=== PATIENT | female | born 1960 | race Caucasian/White ===

== ENCOUNTER → 2023-10-12 13:00 | Outpatient (BNV) | payer BC, SELFPAY | PROVIDERS: Visit Provider Psychiatry & Neurology Psychiatry | DX: F32.A Depression, unspecified (principal); F43.0 Acute stress reaction; F43.10 Post-traumatic stress disorder, unspecified | CPT/HCPCS: 90792; 90832; 99213 ==

== ENCOUNTER 2023-10-20 12:45 | Outpatient (RCR) | payer BC, SELFPAY ==
[2023-10-07 11:47] VITALS: BP 114/69; PULSE 87; TEMP 37.2
[2023-10-07 11:51] VITALS: BMI 30.4
--- NOTE | 2023-10-07 15:37 | PC.ADMIT ---
Patient is a 63 year old female who was referred to [facility] by her therapist d/t increased depression and anxiety sxs. She reports many stresses including work stress and stress at home as her 32 year old son is living with her son who she describes is a recovering addict however she is unsure if he is still using. She feels she does not have a safe place to live and feels she is being blamed for everything. She reports feeling overwhelmed. Is taking a leave of absence from work to work on her mental health. Her supports include family and friends. Swati is alert and oriented x4. She is calm and cooperative. Presented with depressed mood and affect. Regarding SI patient stated, Not in the past week or so but have had thoughts to, walk in front of a truck on the highway . Thoughts about how many muscle relaxers she could take. Stated no intent to kill herself as she does not want to end up worse off than she is. I gave Swati a copy of her safety plan and reviewed this with her. Medications reconciled with patient and patient's pharmacy. Stated she does take her medications as prescribed however had some prescriber issues as some of her providers left. She reports she ran out of Wellbutrin, fluoxetine x one week which were filled on 10/05/23 and ran out of [place] Thyroid for a week and stated this should be taken care of today. She reports her sister and friend are supportive. She is taking a leave of absence from work to work on her mental health.
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
--- NOTE | 2023-10-13 18:42 | HO.PHP ---
The client's case was reviewed and opened in treatment team.
--- NOTE | 2023-10-14 20:08 | HO.PHPPROGNO ---
Subjective Subjective Date of Service: 10/14/23 Reason For Visit: PTSD Interim History: Patient seen for follow-up. No acute issues or complaints Doing alright . NO changes since we have continued off the Wellbutrin. SHe reports her mood is stable. She has not noticed any emerging problems with energy or focus. Sleep is okay, no change, still tends to wak up once a night, otherwise getting enough hours. Continues on the fluoxetine 10 mg which helps with hotflashes. Attending groups. Discusses challenging work environment. Not feeling supported, weighing out options for work. Monitoring alcohol consumption. Denies any hopelessness or SI. Medication Compliance: Yes Side effects from medications: No Attending Groups: Yes Review of Systems Acute medical concerns: No Mental Status Exam Mental Status Exam Narrative: Alert, oriented, in no acute distress. Casually dressed. Hygiene good, grooming good. Normal gait, no tics/tremors/dyskinesia, no psychomotor agitation or neurovegetative retardation. Calm, cooperative, forthcoming. Well-related. Maintains appropriate eye contact. Mood is depressed. Affect subdued, low range of affect, low reactivity, mood congruent. Speech is normal, regular rate, rhythm, prosody. No latency or pressured speech. Thought process is goal-directed. Thought content relevant to stressors and presentation, no paranoid or delusional content elicited, some future-orientation. Denies SI or HI on inquiry. No evidence of psychosis. Cognition grossly intact. Sensorium clear. Insight is good. Judgment intact. Diagnostics Vital Signs (24Hr): BMI result Body Mass Index 30.4 Assessment & Plan Assessment & Plan (1) Depressive disorder: Status: Acute Code(s): F32.A - Depression, unspecified (2) Acute stress reaction causing mixed disturbance of emotion and conduct: Status: Acute Code(s): F43.0 - Acute stress reaction (3) Complex posttraumatic stress disorder: Status: Acute Code(s): F43.10 - Post-traumatic stress disorder, unspecified Plan continue off the Wellbutrin (will discontinue) contiue fluoxetine 10 mg qAM continue other medications continue to monitor Patient educated on: diagnosis and medication risk/benefits Informed Consent: understands Reason for contiued partial hosp. stay Substantial Risk for: inability to function, rapid decompensation and med/psych decompensation Certification I certify that partial hospital treatment is medically necessary due to the symptoms and problems resulting from the patient's mental illness and the failure to treat the patient at the partial hospital level of care would likely result in the patient requiring inpatient psychiatric care which could not be prevented at a less intensive level of care. Total time managing care of this patient today _30___ minutes. Discharge Plan Discharge Attending provider: Anabel Tamayo Medications: Continued multivitamin Tablet 1 tab PO DAILY liothyronine 5 mcg tablet 10 mcg PO QAM fluoxetine 10 mg capsule 10 mg PO DAILY magnesium 250 mg Tablet 250 mg PO DAILY albuterol sulfate 90 mcg/actuation HFA aerosol inhaler 1 - 2 puff INHALATION Q4-6H PRN (Reason: sob) thyroid (pork) [[place] Thyroid] 30 mg tablet 30 mg PO DAILY Discontinued bupropion HCl 150 mg tablet extended release 24 hr 150 mg PO QAM Hold Instructions: Resume on 10/17/23. Stand Alone Forms: Patient Portal Discharge page Patient Education: Post Traumatic Stress Disorder (ED)
--- NOTE | 2023-10-19 15:14 | HO.PHP ---
[facility] staff followed up with Swati after group one to explore how she is feeling due to her appearing overwhelmed. Swati agreed that it was a little overwhelming and mentioned that she would love to be able to talk to her son around these situations and resolve the issues but she does not see that being a possibility without a highway engineer. [facility] staff member was receptive and encouraged her not to engage in conversation with her son if she is feeling unsafe or uncertain to how he would respond due to his mental state. [facility] staff member assessed if Swati would like resources for family therapist. Swati noted that she would appreciate that. [facility] staff member was receptive and encouraged her to go on [employer] to see if there is an individual she feels would be a good fit. [facility] staff member also encouraged her to further discuss with her therapist her thoughts around the situation with her son. Swati was in agreement. Swati was not expressing any current safety concerns at this time.
--- NOTE | 2023-10-20 18:15 | HO.PHPPROGNO ---
Subjective Subjective Date of Service: 10/20/23 Reason For Visit: PTSD Interim History: Patient seen for follow-up. She anticipates discharge at the end of the program today. She reports she is doing well. 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 She would like to use her time to get some things done, errands, projects other tasks that she has not had time to attend to, but also feels sense of duty or obligation to return to work and see her students. She continues off the WEllbutrin and feels no change. Mood continues to be stable. Mood today good euthymic. Denies any hopelessness or SI. She has been having more productive discussions with her adult son, and feels they are starting to make inroads. He still struggles with his mood up and down but is starting to take some accountability, at least he is being less hostile. She continues on baljit Prozac 10 mg (for menopausal symptoms relief). Denies any adverse effects. She will be following up with her PCP on the and her therapist on the . Denies any acute issues or concerns. Medication Compliance: Yes Side effects from medications: No Attending Groups: Yes Review of Systems Acute medical concerns: No Mental Status Exam Mental Status Exam Narrative: Alert, oriented, in no acute distress. Casually dressed. Calm, cooperative, forthcoming. Eye contact maintained. Mood euthymic, affect approrpriate. Normal speech. No evidence of thought disorder. Goal-directed. Future-oriented. No SI or HI on inquiry. No evidence of cheryle or psychosis. Cognition grossly intact. Sensorium clear. Insight and judgment intact. Diagnostics Vital Signs (24Hr): BMI result Body Mass Index 30.4 Assessment & Plan Assessment & Plan (1) Depressive disorder: Status: Acute Code(s): F32.A - Depression, unspecified (2) Acute stress reaction causing mixed disturbance of emotion and conduct: Status: Acute Code(s): F43.0 - Acute stress reaction (3) Complex posttraumatic stress disorder: Status: Acute Code(s): F43.10 - Post-traumatic stress disorder, unspecified Plan [facility]charge from [facility] Continue on current medications Will defer further medication management to outpatient provider on 11/01 at 1:30pm Patient educated on: diagnosis and medication risk/benefits Informed Consent: understands Reason for contiued partial hosp. stay Substantial Risk for: stable for discharge Certification I certify that partial hospital treatment is medically necessary due to the symptoms and problems resulting from the patient's mental illness and the failure to treat the patient at the partial hospital level of care would likely result in the patient requiring inpatient psychiatric care which could not be prevented at a less intensive level of care. Total time managing care of this patient today _30___ minutes. Discharge Plan Discharge Attending provider: Anabel Tamayo Additional Instructions: Swati has an OP therapist through at a Private Practice, [facility], in which her next scheduled appointment is October 25, 2023 at 1 PM. Swati's PCP is prescribing her medication, in which her next scheduled appointmnet time with her PCP is on November 01, 2023 at 1:30 PM. Swati declined a referral for med management while in the program. Medications: Continued multivitamin Tablet 1 tab PO DAILY liothyronine 5 mcg tablet 10 mcg PO QAM fluoxetine 10 mg capsule 10 mg PO DAILY magnesium 250 mg Tablet 250 mg PO DAILY albuterol sulfate 90 mcg/actuation HFA aerosol inhaler 1 - 2 puff INHALATION Q4-6H PRN (Reason: sob) thyroid (pork) [[place] Thyroid] 30 mg tablet 30 mg PO DAILY Discontinued bupropion HCl 150 mg tablet extended release 24 hr 150 mg PO QAM Hold Instructions: Resume on 10/17/23. Stand Alone Forms: Patient Portal Discharge page Patient Education: Depression (DC), Post Traumatic Stress Disorder (ED)
== END 2023-10-20 23:59 | disposition home or self-care (01) ==
LOC: HO.PHPA 12:45
PROVIDERS: Visit Provider Psychiatry & Neurology Psychiatry
DX: F32.A Depression, unspecified (principal); F43.10 Post-traumatic stress disorder, unspecified; F43.0 Acute stress reaction; Z79.899 Other long term (current) drug therapy
CPT/HCPCS: 90791; 90853